=== PATIENT | male | born 1985 | race African-American/Black ===

== ENCOUNTER 2020-05-26 20:27 | Emergency (ER) | payer OTHER ==
--- NOTE | 2020-05-26 20:36 | PDOC ---
Rapid Medical Evaluation Chief Complaint: Headache Time Seen by Provider: 05/26/20 20:34 Medical Evaluation: Allergies Allergy/AdvReac Type Severity Reaction Status Date / Time No Known Allergies Allergy Unverified 02/14/20 15:49 05/26/20 20:34 35 year old male c/o dizziness, headache and nausea x1 days. denies exposure to covid 19. denies recent travel Pe: patient alert talking A: headache P: labs IV patient to the ER for further management of caRE. Discharge Disposition - Diagnosis Generalized weakness Headache Qualifiers: Headache type: unspecified Headache chronicity pattern: acute headache Intractability: intractable Qualified Code(s): R51 - Headache - Referrals - Patient Instructions - Post Discharge Activity
[2020-05-26 20:37] VITALS: BP 157/97; PULSE 91; TEMP 98.5; BMI 22.4
[2020-05-26] MEDS ORDERED: MECLIZINE HCL 25 MG TABLET (FP) PO ONE (20:56)
--- NOTE | 2020-05-26 20:58 | PDOC ---
History of Present Illness - General Chief Complaint: Headache Stated Complaint: HEADACHE Time Seen by Provider: 05/26/20 20:34 - History of Present Illness Initial Comments: 05/26/20 20:57 35 y/o M w/o CM presents for evaluation of VITALE, CP, and dizziness x2 days. Past History - Medical History Allergies/Adverse Reactions: Allergies Allergy/AdvReac Type Severity Reaction Status Date / Time No Known Allergies Allergy Unverified 05/26/20 20:36 COPD: No - Psycho-Social/Smoking History Smoking History: Never smoked Have you smoked in the past 12 months: No - Substance Abuse Hx (Audit-C & DAST Scrn) How often the patient has a drink containing alcohol: Never Score: In Men: 4 or > Positive; In Women: 3 or > Positive: 0 Screen Result (Pos requires Nsg. Audit-10AR): Negative Review of Systems - Review of Systems Constitutional: No: Fever Cardiac (ROS): Yes: Chest Pain ABD/GI: Yes: Nausea, Vomiting Neurological: Yes: Headache, Dizziness *Physical Exam - Vital Signs Last Vital Signs Temp Pulse Resp BP Pulse Ox 98.5 F 91 H 18 157/97 100 05/26/20 20:33 05/26/20 20:33 05/26/20 20:33 05/26/20 20:33 05/26/20 20:33 - Physical Exam 05/26/20 20:58 GENERAL: The patient is awake, alert, and fully oriented, in no acute distress. HEAD: Normal with no signs of trauma. EYES: sclera anicteric, conjunctiva clear. ENT: Ears normal tympanic membranes normal oropharynx clear uvula midline NECK: Normal range of motion LUNGS: Breath sounds equal, clear to auscultation bilaterally. No wheezes, and no crackles. HEART: S1 and S2 without murmur, rub or gallop. ABDOMEN: Soft, nontender, normoactive bowel sounds. No guarding, no rebound. No masses. EXTREMITIES: Normal range of motion, no edema. No clubbing or cyanosis. No cords, erythema, or tenderness. NEUROLOGICAL: Cranial nerves II through XII grossly intact. PSYCH: Normal mood, normal affect. SKIN: Warm, Dry, normal turgor, no rashes or lesions noted. ED Treatment Course - LABORATORY CBC & Chemistry Diagram: 05/26/20 21:10 05/26/20 21:10 - RADIOLOGY Radiology Studies Ordered: Category Date Time Status HEAD CT WITHOUT CONTRAST [CT] Stat CT Scan 05/26/20 20:57 Ordered CHEST PA & LAT [RAD] Stat Radiology 05/26/20 20:57 Ordered Medical Decision Making - Medical Decision Making 05/26/20 22:27 Benign examination normal work-up symptoms relieved with meclizine. No reason for Repeat troponin. Symptoms have been going on since Monday. Follow-up with neurology. I have reviewed the pathophysiology with the patient. They are in agreement with the treatment plan all questions were answered to their satisfaction. Understanding for follow-up without fail was also conveyed to the patient. Again they are in agreement. Discharge - Discharge Information Problems reviewed: Yes Clinical Impression/Diagnosis: Generalized weakness, Vertigo Headache Qualifiers: Headache type: unspecified Headache chronicity pattern: acute headache Intractability: intractable Qualified Code(s): R51 - Headache Condition: Improved Disposition: HOME - Admission No - Follow up/Referral Referrals: Jennifer Dixon MD [Primary Care Provider] - Oc Antonio MD [Staff Physician] - - Patient Discharge Instructions Additional Instructions: Please take the meclizine as directed and return to the emergency room should s ymptoms worsen. Without fail follow-up with neurology in 1 to 2 days for further evaluation and treatment options. - Post Discharge Activity
[2020-05-26] MEDS ORDERED: ONDANSETRON 4 MG/2 ML VIAL IVPUSH ONE (21:00)
[2020-05-26] MEDS ORDERED: MECLIZINE HCL 25 MG TABLET (FP) ONE (21:17)
[2020-05-26 21:33] LABS: EOS % 1.9 % (0-4.5); HEMATOCRIT 42.8 % (35.4-49); HEMOGLOBIN 14.6 GM/dL (11.7-16.9); LYMPH % 36.8 % (8-40); MCH 29.2 pg (25.7-33.7); MCHC 34.3 g/dl (32.0-35.9); MEAN CELL VOLUME 85.3 fl (80-96); MEAN PLT VOLUME 9.7 fl (7.5-11.1); MONO % 5.2 % (3.8-10.2); NEUT % 55.1 % (42.8-82.8); PLATELET COUNT 198 K/MM3 (134-434); RBC 5.01 M/mm3 (4.00-5.60); RDW 13.4 % (11.9-15.9); WHITE BLOOD COUNT 5.7 K/mm3 (4.0-10.0)
[2020-05-26 22:03] LABS: ALBUMIN 3.9 g/dl (3.4-5.0); ALK PHOS 53 U/L (45-117); ANION GAP 6 MMOL/L (8-16); BILIRUBIN,TOTAL 0.3 mg/dL (0.2-1); BLOOD UREA NITROGEN 14.4 mg/dL (7-18); CHLORIDE 104 mmol/L (98-107); CO2 30 mmol/L (21-32); CREATININE 1.2 mg/dL (0.55-1.3); GLUCOSE,RANDOM 100 mg/dL (74-106); POTASSIUM 3.4 mmol/L (3.5-5.1); SGOT/AST 8 U/L (15-37); SGPT/ALT 30 U/L (13-61); SODIUM 140 mmol/L (136-145); TOT PROT 7.6 g/dl (6.4-8.2)
--- NOTE | 2020-05-27 09:33 | EKG ---
Test Reason : Blood Pressure : / mmHG Vent. Rate : 058 BPM Atrial Rate : 058 BPM P-R Int : 124 ms QRS Dur : 096 ms QT Int : 380 ms P-R-T Axes : 029 070 040 degrees QTc Int : 373 ms SINUS BRADYCARDIA LEFT VENTRICULAR HYPERTROPHY BORDERLINE ECG Confirmed by MD DAYANA, NABIL ([id number]) on 05/27/2020 9:33:07 AM Referred By: Confirmed By:NABIL ANNE MD
== END 2020-05-26 22:43 | disposition home or self-care (01) ==
LOC: JER 20:27
PROC: 3E033GC Introduction of Other Therapeutic Substance into Peripheral Vein, Percutaneous Approach (ICD-10-PCS; principal; 2020-05-26)
DX: R51 Headache (principal); R53.1 Weakness; R42 Dizziness and giddiness
CPT/HCPCS: 36415; 70450-TC; 71046-TC-FY; 80053; 82550; 82553; 84484; 85025; 93005; 93010; 96374; 99285-25